=== PATIENT | male | born 1960 | race Caucasian/White ===

== ENCOUNTER → 2022-04-05 | Day surgery (SDC) | payer OTHER ==
[~2022-04-05] MED LIST: ASPIR 8181 MG; ATORVASTATIN CA20 MG PO; FENTANYL CITRATE/PF 100MCG/2 ML INJ ONE; MIDAZOLAM HCL 2 MG/2 ML VIAL ONE; OR PHACO EYE KIT ONE; PREOP PHACO EYE KIT ONE; ZYRTEC10 M3
[2022-04-05 12:05] VITALS: BP 133/65
== END | disposition home or self-care (01) ==
LOC: OR 08:09
PROVIDERS: ATTEND Ophthalmology
DX: H25.11 Age-related nuclear cataract, right eye (principal); Z01.812 Encounter for preprocedural laboratory examination; Z20.822 Contact with and (suspected) exposure to COVID-19; Z79.899 Other long term (current) drug therapy
CPT/HCPCS: 0223U; 36415; 66984; J2250; J3010; V2632